=== PATIENT | male | born 1980 | race African-American/Black ===

== ENCOUNTER 2017-11-04 11:14 | Emergency (ER) | payer MEDICAID ==
[~2017-11-04] VITALS: Ht 185.4 cm; Wt 106.6 kg
[2017-11-04 12:00] VITALS: BP 145/90
[2017-11-04] MEDS ORDERED: KETOROLAC TROMETH 60MG/2ML VIAL IM ONE (12:30)
== END 2017-11-04 13:21 | disposition home or self-care (01) ==
LOC: ER 11:14
DX: R51 Headache (principal); M25.512 Pain in left shoulder; V48.5XXA Car driver injured in noncollision transport accident in traffic accident, initial encounter; Y93.89 Activity, other specified; Y92.488 Other paved roadways as the place of occurrence of the external cause; Y99.8 Other external cause status
CPT/HCPCS: 72070; 96372; 99284; J1885

== ENCOUNTER 2019-02-12 23:24 | Emergency (ER) | payer MEDICAID ==
[~2019-02-12] VITALS: Ht 172.7 cm; Wt 86.2 kg
[2019-02-12 23:36] VITALS: BP 151/116
[2019-02-12] MEDS ORDERED: cloNIDine HCL 0.1 MG TAB ONE (23:39)
[2019-02-13] MEDS ORDERED: cloNIDine HCL 0.1 MG TAB PO ONE
== END 2019-02-12 23:55 | disposition left against medical advice (07) ==
LOC: ER 23:28
DX: Z02.89 Encounter for other administrative examinations (principal); Z53.21 Procedure and treatment not carried out due to patient leaving prior to being seen by health care provider